=== PATIENT | female | born 1990 | race Caucasian/White ===

== ENCOUNTER 2020-11-03 19:29 | Emergency (ER) | payer OTHER ==
[~2020-11-03] VITALS: Ht 170.2 cm; Wt 85.9 kg
[2020-11-03] MEDS ORDERED: IBUPROFEN 600 MG TABLET. PO ONE (20:30)
[2020-11-03] MEDS ORDERED: ACETAMINOPHEN 500 MG TABLET PO ONE (20:30)
--- NOTE | 2020-11-03 20:53 | RAD ---
XR EXAM OF ANKLE_LEFT 3V 11/03/2020 8:18 PM INDICATION: Left ankle pain. Stepped wrong on stairs. COMPARISON: None available. TECHNIQUE: 3 views of the left ankle are provided. FINDINGS/ IMPRESSION: There is no acute fracture or dislocation. Joint spaces are maintained. Bone mineralization is within normal limits. Regional soft tissues are within normal limits. There is no soft tissue gas or osseou s erosion. No radiopaque foreign body. Plantar calcaneal enthesophyte. Electronically signed by: Niik Girard MD (11/03/2020 8:51 PM) [facility]
--- NOTE | 2020-11-03 21:03 | PHYS DOC ---
Adult General Chief Complaint Chief Complaint: MECHANICAL FALL HPI HPI Patient is a 30-year-old female who presents with left ankle pain after twisting it at home. States that it is 6 out of 10, dull and achy in nature. Denies any other injuries. States she is able to walk. Did not take any medications. Review of Systems Review of Systems Review of systems otherwise unremarkable Current Medications Current Medications Current Medications Medications (Trade) Dose Ordered Sig/Ramona Start Time Stop Time Status Last Admin Dose Admin Acetaminophen (Tylenol) 1,000 mg 1X ONCE 11/03/20 20:30 11/03/20 20:36 DC 11/03/20 20:56 1,000 MG Ibuprofen (Motrin) 600 mg 1X ONCE 11/03/20 20:30 11/03/20 20:36 DC 11/03/20 20:56 600 MG Allergies Allergies Allergies Coded Allergies Type Severity Reaction Last Updated Verified No Known Drug Allergies 11/03/20 No Physical Exam Physical Exam Constitutional: Well developed, well nourished, no acute distress, non-toxic appearance. [] Skin: Warm, dry, no erythema, no rash. [] Extremities: Mild tenderness at left lower ankle with no obvious deformities, bruising. Neurovascular exam intact Neurologic: Alert and oriented X 3, normal motor function, normal sensory function, no focal deficits noted. [] Psychologic: Affect normal, judgement normal, mood normal. [] EKG EKG [] Radiology/Procedures Radiology/Procedures [] XR EXAM OF ANKLE_LEFT 3V 11/03/2020 8:18 PM INDICATION: Left ankle pain. Stepped wrong on stairs. COMPARISON: None available. TECHNIQUE: 3 views of the left ankle are provided. FINDINGS/ IMPRESSION: There is no acute fracture or dislocation. Joint spaces are maintained. Bone mineralization is within normal limits. Regional soft tissues are within normal limits. There is no soft tissue gas or osseous erosion. No radiopaque foreign body. Plantar calcaneal enthesophyte. Electronically signed by: Niki Girard MD (11/03/2020 8:51 PM) [facility] Heart Score C/O Chest Pain: No Risk Factors: Risk Factors: DM, Current or recent (<one month) smoker, HTN, HLP, family history of CAD, obesity. Risk Scores: Risk Factors: DM, Current or recent (<one month) smoker, HTN, HLP, family history of CAD, obesity. Course & Med Decision Making Course & Med Decision Making Patient is 30-year-old female presents with left ankle pain vital signs not concerning. Physical exam noted above. Given Tylenol, ibuprofen and ice. Imaging with no acute osseous abnormalities. Placed in Bertram wrap. Gave recommendations for pain management at home. Gave return precautions to the ED. Patient grateful, verbalized understanding and agreed with plan of discharge. [] Dragon Disclaimer Dragon Disclaimer This electronic medical record was generated, in whole or in part, using a voice recognition dictation system. Departure Departure: Impression: Primary Impression: Ankle sprain Disposition: HOME / SELF CARE / HOMELESS Condition: GOOD Referrals: PCP,UNKNOWN (PCP) DEBRA MOJICA Patient Instructions: Ankle Sprain, RICE - Routine Care for Injuries Additional Instructions: Please read all the attached information very carefully. Thank you for coming into the emergency department tonight and allowing us to take care of you. You c an use Tylenol, ibuprofen, ice as needed at home for pain control. Please follow-up with your primary care as needed. Please come back to the ED with new or concerning symptoms as discussed. PEYMAN SALINAS MD Nov 03, 2020 21:03
[2020-11-03 21:05] VITALS: BP 118/77
== END 2020-11-03 21:05 | disposition home or self-care (01) ==
LOC: ER 19:29
DX: S93.402A Sprain of unspecified ligament of left ankle, initial encounter (principal); X50.9XXA Other and unspecified overexertion or strenuous movements or postures, initial encounter; Y93.89 Activity, other specified; Y92.89 Other specified places as the place of occurrence of the external cause; Y99.8 Other external cause status
CPT/HCPCS: 73610; 99283